=== PATIENT | male | born 1985 | race African-American/Black ===

== ENCOUNTER 2022-01-24 09:36 | Day surgery (SDC) | payer BC ==
[~2022-01-24] VITALS: Ht 170.2 cm; Wt 81.2 kg
[2022-01-24] VITALS (16 sets, daily range): BP systolic 107–133; BP diastolic 56–86
[2022-01-24] MEDS ORDERED: CEFAZOLIN SODIUM 1 GM VIAL ONE (10:45)
[2022-01-24] MEDS ORDERED: LACTATED RINGERS 1000ML 1,000 ML IV ONE (10:45)
[2022-01-24] MEDS ORDERED: LIDOCAINE HCL 1% 20 ML VIAL ONE (10:58)
[2022-01-24] MEDS ORDERED: BUPIVACAINE/PF 0.25% 30ML VIAL IJ ONE (11:01)
[2022-01-24] MEDS ORDERED: CEFAZOLIN SODIUM 1 GM VIAL IVP SCH (11:30)
[2022-01-24] MEDS ORDERED: ALBUTEROL INHALER 90MCG/INH IH ONE (11:32)
[2022-01-24] MEDS ORDERED: SUCCINYLCHOLINE CHLORIDE 20 MG/ML 10 ML VIAL ONE (11:38)
[2022-01-24] MEDS ORDERED: DEXAMETHASONE SOD PHOSPHATE 10MG/ML 1ML VIAL ONE (11:38)
[2022-01-24] MEDS ORDERED: LIDOCAINE PF 100MG/5ML (2%) SYRINGE 5ML ONE (11:38)
[2022-01-24] MEDS ORDERED: LORA10TA7 PO (11:39)
[2022-01-24] MEDS ORDERED: ONDANSETRON 4MG INJ ONE (11:39)
[2022-01-24] MEDS ORDERED: MIDAZOLAM HCL 1 MG/ML 2ML VIAL ONE (11:39)
[2022-01-24] MEDS ORDERED: GLYCOPYRROLATE 1 MG/5 ML SYRINGE ONE (11:39)
[2022-01-24] MEDS ORDERED: ROCURONIUM 10MG/1ML SYR 10 MG/ML ML ONE (11:39)
[2022-01-24] MEDS ORDERED: ALBU8.5H8 IH (11:39)
[2022-01-24] MEDS ORDERED: BUDE10.2 IH (11:39)
[2022-01-24] MEDS ORDERED: PROPOFOL 10 MG/ML 20ML VIAL IV ONE (11:39)
[2022-01-24] MEDS ORDERED: FENTANYL CITRATE PF 50 MCG/1 ML 2ML VIAL ONE ×2 (11:39→12:51)
[2022-01-24] MEDS ORDERED: NEOSTIGMINE 5MG/5ML SYR IV ONE (11:39)
[2022-01-24] MEDS ORDERED: MEPERIDINE-PF 25 MG/ML SYG ONE (11:53)
[2022-01-24] MEDS ORDERED: BACITRACIN 28.4 GM OINT TP ONE (13:57)
[2022-01-24] MEDS ORDERED: KETOROLAC 30MG VIAL (30MG/ML) ONE (14:50)
== END 2022-01-24 15:43 | disposition home or self-care (01) ==
LOC: DAH 09:36
PROVIDERS: ATTEND Urology
DX: Z30.2 Encounter for sterilization (principal); D17.6 Benign lipomatous neoplasm of spermatic cord; J45.909 Unspecified asthma, uncomplicated; Z98.890 Other specified postprocedural states; Z79.899 Other long term (current) drug therapy
CPT/HCPCS: 55250; 87635; J0330; J0690; J1100; J1885; J2001; J2175; J2250; J2405; J2704; J2710; J3010 ×2; J3490 ×2; J7120